=== PATIENT | female | born 2005 | race Caucasian/White ===

== ENCOUNTER → 2024-06-16 | Outpatient (CLI) | payer OTHER ==
[~2024-06-16] MED LIST: ALBUIS; DIPH12.5EL PO; NAPROXEN250 M1 PO; RXAZITHSU PO; SULTRIEL PO; Zithromax200 MG/5 M PO
[2024-06-20 21:24] LABS: APTIMA MEDIA TYPE Urine; C. TRACHOMATIS BY TMA Negative (Negative); N. GONORRHOEAE BY TMA Negative (Negative); SPECIMEN SOURCE Urine
== END ==
LOC: LAB SHORT 16:40 → LAB 16:40
PROVIDERS: Obstetrics & Gynecology
DX: Z11.3 Encounter for screening for infections with a predominantly sexual mode of transmission (principal)
CPT/HCPCS: 87491; 87591

== ENCOUNTER 2024-08-01 14:00 | Emergency (ER) | payer OTHER ==
[~2024-08-01] VITALS: Ht 160 cm; Wt 74.8 kg
[2024-08-01 14:36] LABS: BASOPHILS ABSOLUTE AUTO 0.04 K/mm3 (0.00-0.23); BASOPHILS PERCENT AUTO 0 % (0-2); EOSINOPHILS ABSOLUTE AUTO 0.05 K/mm3 (0.00-0.68); EOSINOPHILS PERCENT AUTO 0 % (0-6); Hematocrit 31.1 % (33.0-51.0); Hemoglobin 10.6 g/dL (11.5-16.0); IMMATURE GRAN ABSOLUTE AUTO 0.05 K/mm3 (0.00-0.10); IMMATURE GRAN PERCENT AUTO 0 % (0-1); LYMPHOCYTES ABSOLUTE AUTO 1.97 K/mm3 (0.84-5.20); LYMPHOCYTES PERCENT AUTO 15 % (21-46); MONOCYTES ABSOLUTE AUTO 0.53 K/mm3 (0.16-1.47); MONOCYTES PERCENT AUTO 4 % (4-13); Mean Corpuscular HGB 29.9 pg (26.0-34.0); Mean Corpuscular HGB Conc 34.1 g/dL (31.5-36.5); Mean Corpuscular Volume 88 fL (80-100); Mean Platelet Volume 9.6 fL (9.1-12.4); NEUTROPHILS ABSOLUTE AUTO 10.53 K/mm3 (1.96-9.15); NEUTROPHILS PERCENT AUTO 80 % (41-73); Platelet Count 348 K/mm3 (150-400); RDW Coefficient Variation 12.6 % (11.7-14.2); RDW Standard Deviation 40.3 fL (35.1-46.3); Red Blood Cell Count 3.54 M/mm3 (3.80-5.20); White Blood Cell Count 13.17 K/mm3 (4.00-11.30)
[2024-08-01 14:57] LABS: Albumin/Globulin Ratio 0.7 (0.8-1.8); Bilirubin, Total 0.4 mg/dL (0.1-1.0); Bun/Creatinine Ratio 8.6 (12.0-20.0); Calcium, Blood 9.2 mg/dL (8.5-10.1); Creatinine, Blood 0.7 mg/dL (0.40-1.00); Globulin, Blood 4.3 g/dL (2.2-4.0); Potassium, Blood 3.6 mmol/L (3.5-5.5); Total Protein, Blood 7.3 g/dL (6.4-8.2)
[2024-08-01 16:36] VITALS: BP 118/88
== END 2024-08-01 18:20 | disposition left against medical advice (07) ==
LOC: ER 14:00
PROVIDERS: Physician Assistant
DX: O26.892 Other specified pregnancy related conditions, second trimester (principal); R10.11 Right upper quadrant pain; Z3A.20 20 weeks gestation of pregnancy; Z53.21 Procedure and treatment not carried out due to patient leaving prior to being seen by health care provider
CPT/HCPCS: 76815; 80053; 85025; 99282-25

== ENCOUNTER → 2024-08-02 | Outpatient (CLI) | payer OTHER | LOC: LAB SHORT 11:57 → LAB 11:57 | DX: R82.90 Unspecified abnormal findings in urine (principal) | CPT/HCPCS: 87086 ==

== ENCOUNTER → 2024-11-29 | Outpatient (CLI) | payer OTHER | END | disposition home or self-care (01) | LOC: LAB SHORT 16:40 → LAB 16:40 | DX: Z34.80 Encounter for supervision of other normal pregnancy, unspecified trimester (principal); Z34.83 Encounter for supervision of other normal pregnancy, third trimester | CPT/HCPCS: 87081; 87150 ==

== ENCOUNTER → 2024-12-13 | Outpatient (CLI) | payer OTHER ==
[~2024-12-13] MED LIST changes: +PRENATAL TABLE1 EAC2
[2024-12-13 15:51] LABS: Source, Urine Clean Catch
[2024-12-13 17:46] LABS: Albumin, Blood 2.7 g/dL (3.4-5.0); Albumin/Globulin Ratio 0.7 (0.8-1.8); Bilirubin, Total 0.4 mg/dL (0.1-1.0); Calcium, Blood 8.7 mg/dL (8.5-10.1); Creatinine, Blood 0.58 mg/dL (0.40-1.00); Globulin, Blood 3.9 g/dL (2.2-4.0); Potassium, Blood 3.9 mmol/L (3.5-5.5); Total Protein, Blood 6.6 g/dL (6.4-8.2)
[2024-12-13 17:54] LABS: BASOPHILS ABSOLUTE AUTO 0.05 K/mm3 (0.00-0.23); BASOPHILS PERCENT AUTO 1 % (0-2); EOSINOPHILS ABSOLUTE AUTO 0.03 K/mm3 (0.00-0.68); EOSINOPHILS PERCENT AUTO 0 % (0-6); Hematocrit 28.7 % (33.0-51.0); Hemoglobin 9.7 g/dL (11.5-16.0); IMMATURE GRAN ABSOLUTE AUTO 0.04 K/mm3 (0.00-0.10); IMMATURE GRAN PERCENT AUTO 0 % (0-1); LYMPHOCYTES PERCENT AUTO 17 % (21-46); MONOCYTES ABSOLUTE AUTO 0.64 K/mm3 (0.16-1.47); MONOCYTES PERCENT AUTO 6 % (4-13); Mean Corpuscular HGB 28.5 pg (26.0-34.0); Mean Corpuscular HGB Conc 33.8 g/dL (31.5-36.5); Mean Corpuscular Volume 84 fL (80-100); Mean Platelet Volume 11.8 fL (9.1-12.4); NEUTROPHILS ABSOLUTE AUTO 8.32 K/mm3 (1.96-9.15); NEUTROPHILS PERCENT AUTO 76 % (41-73); Platelet Count 274 K/mm3 (150-400); RDW Coefficient Variation 12.5 % (11.7-14.2); RDW Standard Deviation 37.7 fL (35.1-46.3); White Blood Cell Count 10.88 K/mm3 (4.00-11.30)
[2024-12-13 18:05] LABS: Appearance, Urine Cloudy (Clear); Bilirubin, Urine Neg (Neg); Blood, Urine Neg (Neg); Color, Urine Yellow (P-Yellow); Glucose Qualitative, Urine Neg (Neg); Ketones, Urine Neg (Neg); Leukocyte Esterase, Urine 3+ (Neg); Nitrite, Urine Pos (Neg); Protein, Urine 2+ (Neg); Urobilinogen, Urine NORM (Normal); pH, Urine 6.5 (5.0-8.0)
[2024-12-13 18:19] LABS: Calcium Oxalate Crystals Few /hpf
[2024-12-13 18:20] LABS: Bacteria Many /hpf; Red Blood Cells, Urine 0-2 /hpf (0-2); Squamous Epithelial Cells Mod /hpf (Few)
[2024-12-13 20:13] LABS: Protein, Urine Random 34.3 mg/dL (0.0-11.9); Protein/Creat Ratio, Ur Random 0.2
== END | disposition home or self-care (01) ==
LOC: LAB 15:30 → LAB SHORT 15:30
PROVIDERS: Obstetrics & Gynecology
DX: R03.0 Elevated blood-pressure reading, without diagnosis of hypertension (principal); R82.90 Unspecified abnormal findings in urine
CPT/HCPCS: 36415; 80053; 81001; 82570; 84156; 85025; 87086

== ENCOUNTER 2024-12-16 22:33 | Inpatient (IN) | payer OTHER ==
[~2024-12-16] VITALS: Ht 160 cm; Wt 84.0 kg
[~2024-12-16 22:33] MED LIST changes: -PRENATAL TABLE1 EAC2
[2024-12-16 22:39] VITALS: BP 146/97
[2024-12-16] MEDS ORDERED: OXYTOCIN/RINGER'S LACTATE 500 ML IV PRN (22:50)
[2024-12-16] MEDS ORDERED: Lactated Ringer's 1,000 ML IV PRN ×3 (22:50)
[2024-12-16] MEDS ORDERED: Misoprostol 200 MCG Tab PR PRN (22:50)
[2024-12-16] MEDS ORDERED: Carboprost Tromethamine 250 MCG/ML 1ML Amp IM PRN (22:50)
[2024-12-16] MEDS ORDERED: FentaNYL 2mcg/ml-Bup 0.1% Epd 250 ML EPI PRN (22:50)
[2024-12-16] MEDS ORDERED: Misoprostol 200 MCG Tab BC PRN (22:50)
[2024-12-16] MEDS ORDERED: Methylergonovine Maleate 0.2MG / ML 1ML Amp IM PRN (22:50)
[2024-12-16] MEDS ORDERED: Tranexamic Acid 100 ML IV PRN (22:50)
[2024-12-16] MEDS ORDERED: ePHEDrine Sulfate 50 MG/ML 1ML Injection XX PRN (22:50)
[2024-12-16] MEDS ORDERED: Oxytocin 10 Unit / ML Vial IM PRN (22:50)
[2024-12-16] MEDS ORDERED: FentaNYL Citrate 50 MCG/ML 2 ML Injection IV PRN (22:55)
[2024-12-16] MEDS ORDERED: Ondansetron HCl 2 MG / ML 2ML Vial IV PRN (22:55)
[2024-12-16] MEDS ORDERED: Acetaminophen 500 MG Tab PO PRN (22:55)
[2024-12-16] MEDS ORDERED: Calcium Carbonate 500 MG Tab Chew PO PRN (22:55)
[2024-12-16 23:15] LABS: BASOPHILS ABSOLUTE AUTO 0.04 K/mm3 (0.00-0.23); BASOPHILS PERCENT AUTO 0 % (0-2); EOSINOPHILS ABSOLUTE AUTO 0.03 K/mm3 (0.00-0.68); EOSINOPHILS PERCENT AUTO 0 % (0-6); Hemoglobin 10.5 g/dL (11.5-16.0); IMMATURE GRAN ABSOLUTE AUTO 0.04 K/mm3 (0.00-0.10); IMMATURE GRAN PERCENT AUTO 0 % (0-1); LYMPHOCYTES ABSOLUTE AUTO 2.54 K/mm3 (0.84-5.20); LYMPHOCYTES PERCENT AUTO 19 % (21-46); MONOCYTES ABSOLUTE AUTO 0.95 K/mm3 (0.16-1.47); MONOCYTES PERCENT AUTO 7 % (4-13); Mean Corpuscular HGB 27.3 pg (26.0-34.0); Mean Corpuscular HGB Conc 33.9 g/dL (31.5-36.5); Mean Corpuscular Volume 81 fL (80-100); Mean Platelet Volume 10.8 fL (9.1-12.4); NEUTROPHILS ABSOLUTE AUTO 9.84 K/mm3 (1.96-9.15); NEUTROPHILS PERCENT AUTO 73 % (41-73); Platelet Count 301 K/mm3 (150-400); RDW Coefficient Variation 12.5 % (11.7-14.2); Red Blood Cell Count 3.85 M/mm3 (3.80-5.20); White Blood Cell Count 13.44 K/mm3 (4.00-11.30)
[2024-12-16 23:19] VITALS: BP 121/68
[2024-12-17] VITALS (14 sets, daily range): BP systolic 105–145; BP diastolic 60–88
[2024-12-17] MEDS ORDERED: Misoprostol 200 MCG Tab PR PRN (03:10)
[2024-12-17] MEDS ORDERED: Lanolin Cream TOP PRN (03:15)
[2024-12-17] MEDS ORDERED: Benzocaine Topical Anesthetic Spray 60GM TOP PRN (03:15)
[2024-12-17] MEDS ORDERED: Acetaminophen 325 MG TABLET PO PRN (03:15)
[2024-12-17] MEDS ORDERED: Carboprost Tromethamine 250 MCG/ML 1ML Amp IM PRN (03:15)
[2024-12-17] MEDS ORDERED: Ibuprofen 400 MG Tab PO PRN (03:15)
[2024-12-17] MEDS ORDERED: OXYTOCIN/RINGER'S LACTATE 500 ML IV SCH (03:15)
[2024-12-17] MEDS ORDERED: Docusate Sodium 100 MG Cap PO PRN (03:20)
[2024-12-17] MEDS ORDERED: Lactated Ringer's 1,000 ML IV SCH (03:20)
[2024-12-17] MEDS ORDERED: Ketorolac Tromethamine 30mg Vial IV PRN (03:20)
[2024-12-17] MEDS ORDERED: Witch Hazel/Glycerin PADS TOP PRN (03:20)
[2024-12-17] MEDS ORDERED: Prenatal Vit/FE Fumarate/FA 1 Tab PO SCH (09:00)
[2024-12-18 00:12] VITALS: BP 135/76
[2024-12-18 05:12] VITALS: BP 104/56
[2024-12-18 08:33] VITALS: BP 137/82
[2024-12-18] MEDS ORDERED: PRENATAL TABLE1 EAC2 (09:11)
[2024-12-18] MEDS ORDERED: Measles/Mumps/Rubella Vaccine 0.5 ML Vial SC ONE (09:15)
[2024-12-18 09:33] VITALS: BP 132/97
== END 2024-12-18 09:37 | disposition home or self-care (01) | DRG 768 ==
LOC: OBS 22:33 → BC 22:34 → OBS 22:50 → BC 22:51
PROVIDERS: Obstetrics & Gynecology; ADMIT Family Medicine
PROC: 10E0XZZ Delivery of Products of Conception, External Approach (ICD-10-PCS; principal; 2024-12-17)
PROC: 0UQJXZZ Repair Clitoris, External Approach (ICD-10-PCS; 2024-12-17)
PROC: 10907ZC Drainage of Amniotic Fluid, Therapeutic from Products of Conception, Via Natural or Artificial Opening (ICD-10-PCS; 2024-12-17)
DX: O13.4 Gestational [pregnancy-induced] hypertension without significant proteinuria, complicating childbirth (principal); Z37.0 Single live birth; O99.344 Other mental disorders complicating childbirth; F41.8 Other specified anxiety disorders; J45.909 Unspecified asthma, uncomplicated; O99.52 Diseases of the respiratory system complicating childbirth; O77.0 Labor and delivery complicated by meconium in amniotic fluid; O71.89 Other specified obstetric trauma; O60.03 Preterm labor without delivery, third trimester; Z87.891 Personal history of nicotine dependence; Z91.018 Allergy to other foods; Z88.8 Allergy status to other drugs, medicaments and biological substances; Z91.010 Allergy to peanuts; Z3A.39 39 weeks gestation of pregnancy
CPT/HCPCS: 36415; 59025; 81003; 85025; 86850; 86900; 86901; 90471; 90707; 99214; A9270; J1885; J2590; J3010; J7120